=== PATIENT | male | born 1960 | race Caucasian/White ===

== ENCOUNTER 2024-08-08 10:15 | Day surgery (SDC) | payer MEDICARE, BC ==
[~2024-08-08] VITALS: Ht 182.9 cm; Wt 111.5 kg
[~2024-08-08 10:15] MED LIST: ACET-1008 PO; ALBU8HFA INH; APIX5TAB3 PO; CYCL-1 PO; GLIM4TAB7 PO; LISI40TA13 PO; METF-438 PO; NIFE90TA70 PO; POTA-207 PO; PRAV10TA39 PO; SOTA80TA73 PO
[2024-08-08 10:34] VITALS: BP 134/83; PULSE 75; RESP 16; TEMP 98.2; O2SAT 98
[2024-08-08] MEDS ORDERED: fentaNYL/PF 50MCG/1 ML 2ML syringe IV ONE (12:20)
[2024-08-08] MEDS ORDERED: normal saline 1000ml 1,000 ML IV SCH (12:20)
[2024-08-08] MEDS ORDERED: MIDAZolam 1mg/ml 10ml vial IV ONE (12:20)
[2024-08-08] MEDS ORDERED: fentaNYL/PF 50MCG/1 ML 2ML syringe ONE (12:47)
[2024-08-08] MEDS ORDERED: midazolam 1 mg/ML 2ml injection ONE (12:47)
[2024-08-08 13:15] VITALS: BP 118/76; PULSE 73; RESP 16; O2SAT 95
--- NOTE | 2024-08-08 13:20 | PROCEDURE NOTE CC ---
Procedure Note Providers to CC CC: MARCO GARZA MD ~ Description Planned Procedure Cardioversion Indications Symptomatic Atrial Fibrillation Post Operative Dx: Same Type of Anesthesia Moderate Sedation. Description It was confirmed that patient has been taking oral anticoagulation without interruption for at least 4 weeks. The appropriate time-out procedure was performed including proper identification of the patient, physician, procedure, documentation, and there were no safety issues identified. The patient participated actively in this. After sedation was achieved, the patient was placed in the supine position and hands free patches were placed on their chest in the AP-lateral position. 1 synchronized cardioversion was provided at 200 Joules with conversion to normal sinus rhythm. This was confirmed on EKG. Complication: None The patient tolerated the procedure well without complications. TESHA GARZA MD Aug 08, 2024 13:20
--- NOTE | 2024-08-08 13:21 | ELECTROCARDIOGRAPH REPORT ---
[facility] Test Date: 2024-08-08 Test Time: 13:18:31 Pat Name: SHAYY ASTUDILLO Department: [facility] Patient ID: [facility]-[id number] Room: Gender: M [employer]: : 1960 Requested By: TESHA MANZANO Order Number: [id number] Reading MD: Dr. Jason Manzano Measurements Intervals [place] Rate: 81 P: 0 [place]: 0 QRS: 0 QRSD: 101 T: 29 QT: 419 QTc: 487 Interpretive Statements Atrial fibrillation Electronically Signed On 08-08-2024 18:25:[address] Jason Manzano Please click the below link to view image of tracing.
[2024-08-08 13:30] VITALS: BP 118/79; PULSE 75; RESP 16; O2SAT 95
[2024-08-08 13:45] VITALS: BP 118/83; PULSE 74; RESP 16; O2SAT 95
== END 2024-08-08 13:50 | disposition home or self-care (01) ==
LOC: SSTAY O 10:15
PROVIDERS: ATTEND Student in an Organized Health Care Education/Training Program
DX: I48.91 Unspecified atrial fibrillation (principal); E11.9 Type 2 diabetes mellitus without complications; J45.909 Unspecified asthma, uncomplicated; I10 Essential (primary) hypertension; Z79.899 Other long term (current) drug therapy; Z98.890 Other specified postprocedural states
CPT/HCPCS: 82948; 92960; 93005; J2250; J3010; J7030; 99152